=== PATIENT | male | born 2000 | race Caucasian/White ===

== ENCOUNTER 2021-05-27 14:23 | Emergency (ER) | payer OTHER ==
[~2021-05-27] VITALS: Ht 175.3 cm; Wt 84.1 kg
--- NOTE | 2021-05-27 14:57 | REP ---
INDICATION: trauma. COMPARISON: None. TECHNIQUE: Three views of the left shoulder were performed. FINDINGS: The acromioclavicular and glenohumeral relationships are within normal limits. There is no acute fracture or destructive osseous lesion. IMPRESSION: No acute abnormality <Electronically signed by Connor Paris > 05/27/21 [id number]
[2021-05-27] MEDS ORDERED: methocarbamoL 500 MG TAB PO ONE (16:40)
[2021-05-27] MEDS ORDERED: KETOROLAC 30 MG/ML 1ML VIAL IM ONE (16:40)
--- NOTE | 2021-05-27 17:09 | REP ---
INDICATION: trauma. COMPARISON: None. TECHNIQUE: 3 x 3 mm increments using helical technique FINDINGS: The acromioclavicular, glenohumeral, and sternoclavicular joints are well maintained. There is no fracture, dislocation, or subluxation. There is no evidence of a glenohumeral joint effusion. IMPRESSION: No evidence of an acute abnormality. <Electronically signed by Connor Paris > 05/27/21 [id number]
[2021-05-27] MEDS ORDERED: METH-1164 PO (17:25)
[2021-05-27 17:54] VITALS: BP 147/79
== END 2021-05-27 17:57 | disposition home or self-care (01) ==
LOC: M ED 14:23
DX: M25.512 Pain in left shoulder (principal)
CPT/HCPCS: 73030; 73200; 96372; 99284; J1885

== ENCOUNTER 2023-09-04 05:32 | Emergency (ER) | payer OTHER ==
[~2023-09-04] VITALS: Ht 175.3 cm; Wt 93.1 kg
[~2023-09-04 05:32] MED LIST: METH-1164 PO
[2023-09-04] MEDS: ACETAMINOPHEN TAB 650MG DOSE (2X325MG) PO ONE (07:47)
[2023-09-04] MEDS: LIDOCAINE 5% (LIDODERM) PATCH TD ONE (07:47)
[2023-09-04] MEDS: KETOROLAC 60MG 2ML VIAL IM ONE (07:47)
[2023-09-04] MEDS ORDERED: NAPR-837 PO (08:36)
[2023-09-04] MEDS ORDERED: METH-1165 PO (08:36)
[2023-09-04] MEDS ORDERED: NAPR-885 PO (08:38)
[2023-09-04 08:52] VITALS: BP 131/68; TEMP 97.7; O2SAT 100
== END 2023-09-04 09:03 | disposition home or self-care (01) ==
LOC: M ED 05:32
DX: S23.3XXA Sprain of ligaments of thoracic spine, initial encounter (principal); M62.830 Muscle spasm of back; X50.0XXA Overexertion from strenuous movement or load, initial encounter; R00.1 Bradycardia, unspecified; I45.10 Unspecified right bundle-branch block; Z79.1 Long term (current) use of non-steroidal anti-inflammatories (NSAID); Z79.899 Other long term (current) drug therapy; Y92.9 Unspecified place or not applicable; Y93.9 Activity, unspecified; Y99.9 Unspecified external cause status
CPT/HCPCS: 71045; 73030; 93005; 96372; 99284; J1885